=== PATIENT | female | born 1935 | race Caucasian/White ===

== ENCOUNTER 2017-07-17 09:17 | Emergency (ER) | payer MEDICARE, MEDICAID ==
[~2017-07-17] VITALS: Ht 147.3 cm; Wt 45.4 kg
[2017-07-17] MEDS ORDERED: CELE100C PO (09:46)
[2017-07-17] MEDS ORDERED: CLOP75TA15 PO (09:46)
[2017-07-17] MEDS ORDERED: ATOR10TA PO (09:46)
[2017-07-17] MEDS ORDERED: GABA-532 PO (09:46)
[2017-07-17] MEDS ORDERED: MIRA50TA PO (09:46)
[2017-07-17] MEDS ORDERED: BENA20TA2 PO (09:46)
[2017-07-17] MEDS ORDERED: TRAZ-144 PO (09:46)
[2017-07-17] MEDS ORDERED: MEMA1CAP4 PO (09:46)
[2017-07-17] MEDS ORDERED: IV NORMAL SALINE 1000 ML BAG IV ONE (10:00)
--- NOTE | 2017-07-17 10:04 | NUR ---
PT IS IN ROOM #2A. DR GLORIA EVALUATED THE PT.
[2017-07-17 10:21] LABS: BASOPHILS % (AUTO) 0.5 % (0.0-2.0); EOSINOPHILS # (AUTO) 0.1 K/uL (0.0-0.7); HEMATOCRIT 40.9 % (31.2-41.9); LYMPHOCYTES # (AUTO) 1.5 K/uL (20.0-40.0); LYMPHOCYTES % (AUTO) 21.3 % (20.5-51.5); MEAN CORPUSCULAR HEMOGLOBIN 30.6 uug (24.7-32.8); MEAN CORPUSCULAR HGB CONC 34 g/dL (32.3-35.6); MEAN CORPUSCULAR VOLUME 89.3 fL (75.5-95.3); MONOCYTES # (AUTO) 0.6 K/uL (2.0-10.0); MONOCYTES % (AUTO) 8.8 % (0.0-11.0); NEUTROPHILS # (AUTO) 4.7 K/uL (1.8-8.9); NEUTROPHILS % (AUTO) 68.4 % (38.5-71.5); PLATELET COUNT (AUTO) 282 K/uL (179-408); RED BLOOD CELL COUNT(AUTO) 4.57 MIL/uL (3.63-4.92); WHITE BLOOD COUNT (AUTO) 6.8 K/uL (3.8-11.8)
[2017-07-17] MEDS ORDERED: ONDANSETRON 4 MG/2 ML VIAL ONE (10:26)
[2017-07-17 10:35] LABS: CARBON DIOXIDE 27 mmol/L (21-32); CHLORIDE 97 mmol/L (98-107); GLUCOSE 102 mg/dL (74-106); POTASSIUM 4.8 mmol/L (3.5-5.1); UREA NITROGEN, BLOOD 16 mg/dL (7-18)
[2017-07-17] MEDS ORDERED: ONDANSETRON 4 MG/2 ML VIAL IV ONE (10:45)
[2017-07-17 10:51] LABS: ALANINE AMINOTRANSFERASE 34 U/L (14-59); ALKALINE PHOSPHATASE 75 U/L (50-136); ASPARTATE AMINOTRANSFERASE 22 U/L (15-37); BILIRUBIN,DIRECT 0.1 mg/dL (0.0-0.2); BILIRUBIN,TOTAL 0.4 mg/dL (0.2-1.0); TOTAL PROTEIN, SERUM 7.1 g/dL (6.4-8.2)
[2017-07-17 11:31] LABS: *BILIRUBIN,URIN NEGATIVE (NEGATIVE); *BLOOD, URINE 1+ (NEGATIVE); *COLOR,URINE YELLOW (YELLOW); *KETONES,URINE TRACE (NEGATIVE); *PROTEIN,URINE NEGATIVE (NEGATIVE); *UROBILINOGEN,URINE 0.2 E.U./dl (NORMAL); LEUKOCYTE ESTERASE ,URINE TRACE (NEGATIVE); NITRITE, URINE NEGATIVE (NEGATIVE); UGLUCOSE NEGATIVE (NEGATIVE)
[2017-07-17] MEDS ORDERED: CLONIDINE HCL 0.1 MG TABLET ONE (11:40)
[2017-07-17 11:42] LABS: *CLARITY,URINE HAZY (CLEAR)
[2017-07-17 11:43] LABS: BACTERIA,URINE NONE SEEN /HPF (NONE SEEN); SQUAMOUS EPITHELIAL CELL,UR FEW /HPF (NONE SEEN); WBC,URINE 0-3 /HPF (0-3)
[2017-07-17 11:44] LABS: MUCUS,URINE FEW /LPF (0-FEW); URINE AMORPHOUS PHOSPHATES FEW /HPF
[2017-07-17] MEDS ORDERED: CLONIDINE HCL 0.1 MG TABLET PO ONE (12:00)
--- NOTE | 2017-07-17 13:55 | NUR ---
PT WAS D/C TO HOME . PT LEFT HOSPITAL AMA. DR GLORIA EXPLAINED ALL RISKS OF LEAVING HOSPITAL AMA TO THE PT AND TO HER DOUGHTER. PT SIGNED AMA FORM AND LEFT HOSPITAL WITH HER DOUGHTER BY CAR. NO S/S OF ACUTE DISTRESS AT THIS TIME.
[2017-07-17 13:58] VITALS: BP 128/88
== END 2017-07-17 13:59 | disposition left against medical advice (07) ==
LOC: ER 09:17
DX: R42 Dizziness and giddiness (principal); I10 Essential (primary) hypertension; Z79.01 Long term (current) use of anticoagulants; Z79.891 Long term (current) use of opiate analgesic; Z79.899 Other long term (current) drug therapy
CPT/HCPCS: 36415; 70030-TC; 70450; 71045; 83605; 84443; 85025; 85730; 87040; 87086; 93005; A4663; J2405; J7030

== ENCOUNTER 2018-12-18 12:27 | Emergency (ER) | payer MEDICARE, MEDICAID ==
[~2018-12-18] VITALS: Ht 152.4 cm; Wt 47.6 kg
[~2018-12-18 12:27] MED LIST: ATOR10TA PO; BENA20TA9 PO; CELE100C PO; CLOP75TA15 PO; GABA-532 PO; MEMA1CAP4 PO; MIRA50TA PO; TRAZ-182 PO
--- NOTE | 2018-12-18 12:33 | NUR ---
Dr Alcantar at the bedside for MSE. Pt's daughter and caregiver translate.
[2018-12-18] MEDS ORDERED: ERGO2000 PO (12:35)
[2018-12-18] MEDS ORDERED: NEBI5TAB8 PO (12:35)
[2018-12-18 13:02] LABS: BASOPHILS % (AUTO) 0.6 % (0.0-2.0); EOSINOPHILS # (AUTO) 0.1 K/uL (0.0-0.7); EOSINOPHILS % (AUTO) 1.5 % (0.0-7.0); HEMATOCRIT 38.3 % (31.2-41.9); HEMOGLOBIN 12.6 g/dL (10.9-14.3); LYMPHOCYTES # (AUTO) 1.4 K/uL (20.0-40.0); MEAN CORPUSCULAR HEMOGLOBIN 29.6 uug (24.7-32.8); MEAN CORPUSCULAR HGB CONC 33 g/dL (32.3-35.6); MEAN CORPUSCULAR VOLUME 90.4 fL (75.5-95.3); MONOCYTES # (AUTO) 1.3 K/uL (2.0-10.0); MONOCYTES % (AUTO) 14.9 % (0.0-11.0); NEUTROPHILS # (AUTO) 5.6 K/uL (1.8-8.9); PLATELET COUNT (AUTO) 278 K/uL (179-408); RED BLOOD CELL COUNT(AUTO) 4.24 MIL/uL (3.63-4.92); WHITE BLOOD COUNT (AUTO) 8.5 K/uL (3.8-11.8)
[2018-12-18 13:10] LABS: CREATININE 0.8 mg/dL (0.6-1.3); POTASSIUM 4.6 mmol/L (3.5-5.1)
[2018-12-18 13:16] LABS: BILIRUBIN,DIRECT 0.1 mg/dL (0.0-0.2); BILIRUBIN,TOTAL 0.1 mg/dL (0.2-1.0)
[2018-12-18 13:23] LABS: THYROID STIMULATING HORMONE 0.297 mIU/mL (0.358-3.740)
[2018-12-18 13:43] LABS: MAGNESIUM 2.4 mg/dL (1.8-2.4)
[2018-12-18 13:44] LABS: *BILIRUBIN,URIN NEGATIVE (NEGATIVE); *BLOOD, URINE NEGATIVE (NEGATIVE); *CLARITY,URINE CLOUDY (CLEAR); *COLOR,URINE YELLOW (YELLOW); *KETONES,URINE NEGATIVE (NEGATIVE); *UROBILINOGEN,URINE 0.2 E.U./dl (NORMAL); LEUKOCYTE ESTERASE ,URINE 1+ (NEGATIVE); NITRITE, URINE POSITIVE (NEGATIVE); PH,URINE 5.5 (5.0-8.0); UGLUCOSE NEGATIVE (NEGATIVE)
--- NOTE | 2018-12-18 14:00 | NUR ---
pt daughter is requesting to take the pt home.
--- NOTE | 2018-12-18 14:10 | NUR ---
CALLED DR. YANG AT [phone] AT PT DAUGHTER'S REQUEST.
[2018-12-18 14:21] LABS: BACTERIA,URINE MANY /HPF (NONE SEEN); RBC,URINE 0-3 /HPF (0-3); SQUAMOUS EPITHELIAL CELL,UR FEW /HPF (NONE SEEN); WBC,URINE TNTC /HPF (0-3)
[2018-12-18] MEDS: CEFTRIAXONE 1 G VIAL IM ONE (14:23)
[2018-12-18] MEDS: LEVOFLOXACIN 500 MG TABLET PO ONE (14:29)
[2018-12-18] MEDS ORDERED: LEVOFLOXACIN 500 MG TABLET ONE (14:30)
--- NOTE | 2018-12-18 14:40 | NUR ---
Patient discharged to home in stable conditon. Written and verbal after care instructions given. Patient daughter verbalizes understanding of instructions.pt was wheel chaired out assissted by daughter. Addendum: 12/18/18 at 1448 by MADONNA the copy of all the studies provided for follow up
[2018-12-18 14:47] VITALS: BP 131/69
== END 2018-12-18 14:48 | disposition home or self-care (01) ==
LOC: ER 12:27
DX: R53.1 Weakness (principal); N39.0 Urinary tract infection, site not specified; E87.1 Hypo-osmolality and hyponatremia; E87.8 Other disorders of electrolyte and fluid balance, not elsewhere classified; R05 Cough; R13.10 Dysphagia, unspecified; M79.10 Myalgia, unspecified site; E78.5 Hyperlipidemia, unspecified; I10 Essential (primary) hypertension; Z79.899 Other long term (current) drug therapy
CPT/HCPCS: 36415; 70030-TC; 70450; 71045; 83735; 84100; 84443; 85025; 87077; 87086; 93005; A4663; C1758

== ENCOUNTER 2020-06-10 10:23 | Emergency (ER) | payer MEDICARE, OTHER ==
[~2020-06-10] VITALS: Ht 142.2 cm; Wt 49.9 kg
[~2020-06-10 10:23] MED LIST changes: +ERGO2000 PO; -MEMA1CAP4 PO; +NEBI5TAB8 PO
[2020-06-10] MEDS ORDERED: GARLIC EXTRACT (10:47)
[2020-06-10] MEDS ORDERED: GABA-532 PO (10:47)
[2020-06-10] MEDS ORDERED: MAGNESIUM (10:47)
[2020-06-10] MEDS ORDERED: MULT-594 PO (10:47)
[2020-06-10] MEDS ORDERED: OLME40TA12 PO (10:47)
[2020-06-10] MEDS ORDERED: CITA10TA9 PO (10:47)
[2020-06-10 11:18] LABS: BASOPHILS # (AUTO) 0.1 K/uL (0.0-8.0); BASOPHILS % (AUTO) 0.7 % (0.0-2.0); EOSINOPHILS # (AUTO) 0.1 K/uL (0.0-0.7); EOSINOPHILS % (AUTO) 1.5 % (0.0-7.0); HEMATOCRIT 32.8 % (31.2-41.9); HEMOGLOBIN 11.2 g/dL (10.9-14.3); LYMPHOCYTES # (AUTO) 1.4 K/uL (20.0-40.0); LYMPHOCYTES % (AUTO) 15.8 % (20.5-51.5); MEAN CORPUSCULAR HEMOGLOBIN 31.3 uug (24.7-32.8); MEAN CORPUSCULAR HGB CONC 34 g/dL (32.3-35.6); MEAN CORPUSCULAR VOLUME 91.5 fL (75.5-95.3); MONOCYTES # (AUTO) 0.8 K/uL (2.0-10.0); MONOCYTES % (AUTO) 9.8 % (0.0-11.0); NEUTROPHILS # (AUTO) 6.2 K/uL (1.8-8.9); NEUTROPHILS % (AUTO) 72.2 % (38.5-71.5); PLATELET COUNT (AUTO) 284 K/uL (179-408); RED BLOOD CELL COUNT(AUTO) 3.58 MIL/uL (3.63-4.92); WHITE BLOOD COUNT (AUTO) 8.6 K/uL (3.8-11.8)
[2020-06-10] MEDS: IV NORMAL SALINE 500 ML BAG IV ONE ×2 (11:18→12:08)
[2020-06-10 11:30] LABS: CARBON DIOXIDE 24 mmol/L (21-32); CHLORIDE 92 mmol/L (98-107); CREATININE 0.8 mg/dL (0.6-1.3); GLUCOSE 98 mg/dL (74-106); POTASSIUM 5.1 mmol/L (3.5-5.1); UREA NITROGEN, BLOOD 16 mg/dL (7-18)
[2020-06-10 11:35] LABS: ALANINE AMINOTRANSFERASE 24 U/L (14-59); ALKALINE PHOSPHATASE 147 U/L (50-136); ASPARTATE AMINOTRANSFERASE 19 U/L (15-37); BILIRUBIN,DIRECT < 0.1 mg/dL (0.0-0.2); BILIRUBIN,TOTAL 0.2 mg/dL (0.2-1.0); TOTAL PROTEIN, SERUM 7.2 g/dL (6.4-8.2)
[2020-06-10 11:43] LABS: THYROID STIMULATING HORMONE 0.221 mIU/mL (0.358-3.740)
[2020-06-10 11:49] LABS: MAGNESIUM 2.8 mg/dL (1.8-2.4)
--- NOTE | 2020-06-10 12:30 | NUR ---
pt in room daughter at bedside the whole er stay. pt resting comfortably, no sign of distrees when laying down, tender on the hips when moving.
[2020-06-10 12:38] LABS: *BILIRUBIN,URIN NEGATIVE (NEGATIVE); *BLOOD, URINE NEGATIVE (NEGATIVE); *CLARITY,URINE CLEAR (CLEAR); *COLOR,URINE YELLOW (YELLOW); *KETONES,URINE NEGATIVE (NEGATIVE); *UROBILINOGEN,URINE 0.2 E.U./dl (NORMAL); LEUKOCYTE ESTERASE ,URINE NEGATIVE (NEGATIVE); NITRITE, URINE NEGATIVE (NEGATIVE); UGLUCOSE NEGATIVE (NEGATIVE)
[2020-06-10] MEDS ORDERED: FURO-152 PO (12:53)
--- NOTE | 2020-06-10 12:56 | NUR ---
Patient and pt's daughter do not wish to proceed with medical care recommended by Dr. Patel womack ). Patient and pt's daughter given information related to possible complications, up to and including , which could occur as a result of leaving the hospital at this time. Patient and daughter verbalize understanding of risks involved due to leaving against medical advice. Patient has signed AMA form. Addendum: 06/10/20 at 1311 by MADONNA pt's daughter talking to pt own pmd regarding managing the care of the pt at home.
[2020-06-10 13:07] VITALS: BP 168/77
== END 2020-06-10 13:12 | disposition home or self-care (01) ==
LOC: ER 10:23
DX: R53.1 Weakness (principal); Z20.822 Contact with and (suspected) exposure to COVID-19; E22.2 Syndrome of inappropriate secretion of antidiuretic hormone; G91.2 (Idiopathic) normal pressure hydrocephalus; J81.0 Acute pulmonary edema; E05.90 Thyrotoxicosis, unspecified without thyrotoxic crisis or storm; Z79.899 Other long term (current) drug therapy; Z79.02 Long term (current) use of antithrombotics/antiplatelets; E78.5 Hyperlipidemia, unspecified; I10 Essential (primary) hypertension; M25.552 Pain in left hip; M25.551 Pain in right hip; I45.10 Unspecified right bundle-branch block
CPT/HCPCS: 36415; 70030-TC; 70450; 71045; 72170; 83735; 84100; 84443; 85025; 85730; 93005; A4663; C1758

== ENCOUNTER 2020-09-06 15:30 | Emergency (ER) | payer MEDICARE, OTHER ==
[~2020-09-06] VITALS: Ht 152.4 cm; Wt 54.0 kg
[~2020-09-06 15:30] MED LIST changes: -BENA20TA9 PO; +CITA10TA9 PO; +FURO-152 PO; +GARLIC EXTRACT; +MAGNESIUM; +MULT-594 PO; +OLME40TA12 PO
--- NOTE | 2020-09-06 15:30 | NUR ---
at bedside for assessment
--- NOTE | 2020-09-06 15:39 | NUR ---
Patient brought in by RA 78 for syncopal episode
--- NOTE | 2020-09-06 15:50 | NUR ---
Patient taken to radiology at this time
[2020-09-06 16:01] LABS: HEMATOCRIT 34.3 % (31.2-41.9); MEAN CORPUSCULAR HEMOGLOBIN 30.4 uug (24.7-32.8); PLATELET COUNT (AUTO) 280 K/uL (179-408)
[2020-09-06 16:05] LABS: CARBON DIOXIDE 26 mmol/L (21-32); CHLORIDE 100 mmol/L (98-107); CREATININE 0.9 mg/dL (0.6-1.3); GLUCOSE 159 mg/dL (74-106); POTASSIUM 3.9 mmol/L (3.5-5.1); UREA NITROGEN, BLOOD 17 mg/dL (7-18)
[2020-09-06 16:11] LABS: ALANINE AMINOTRANSFERASE 31 U/L (14-59); ALKALINE PHOSPHATASE 102 U/L (50-136); ASPARTATE AMINOTRANSFERASE 16 U/L (15-37); BILIRUBIN,DIRECT 0.1 mg/dL (0.0-0.2); BILIRUBIN,TOTAL 0.1 mg/dL (0.2-1.0); TOTAL PROTEIN, SERUM 6.5 g/dL (6.4-8.2)
[2020-09-06] MEDS ORDERED: IBUPROFEN 600 MG TABLET ONE (16:38)
[2020-09-06] MEDS ORDERED: IBUPROFEN 600 MG TABLET PO ONE (16:45)
--- NOTE | 2020-09-06 16:45 | NUR ---
Patient does not wish to proceed with medical care recommended by Dr. Allen. Patient given information related to possible complications, up to and including , which could occur as a result of leaving the hospital at this time. Patient verbalizes understanding of risks involved due to leaving against medical advice. Patient has signed AMA form.
[2020-09-06 17:01] VITALS: BP 153/64
== END 2020-09-06 16:50 | disposition left against medical advice (07) ==
LOC: ER 15:32
DX: R55 Syncope and collapse (principal); I11.0 Hypertensive heart disease with heart failure; I50.9 Heart failure, unspecified; G30.9 Alzheimer's disease, unspecified; F02.80 Dementia in other diseases classified elsewhere, unspecified severity, without behavioral disturbance, psychotic disturbance, mood disturbance, and anxiety; E78.5 Hyperlipidemia, unspecified; Z86.73 Personal history of transient ischemic attack (TIA), and cerebral infarction without residual deficits; Z66 Do not resuscitate; Z79.02 Long term (current) use of antithrombotics/antiplatelets; I67.2 Cerebral atherosclerosis; E03.9 Hypothyroidism, unspecified; I45.10 Unspecified right bundle-branch block; Z79.899 Other long term (current) drug therapy; G62.9 Polyneuropathy, unspecified
CPT/HCPCS: 36415; 70030-TC; 70450; 71045; 84443; 85025; 85730; 93005; A4663

== ENCOUNTER 2023-01-16 11:21 | Inpatient (IN) | payer MEDICARE, OTHER ==
[~2023-01-16] VITALS: Ht 142.2 cm; Wt 50.3 kg
[2023-01-16] MEDS ORDERED: LIPA1CAP15 PO (12:05)
[2023-01-16] MEDS ORDERED: ACET-73 PO (12:05)
[2023-01-16] MEDS ORDERED: LOSA25TA27 PO (12:05)
[2023-01-16] MEDS ORDERED: ERGO500040 PO (12:05)
[2023-01-16] MEDS ORDERED: FURO20TA4 PO (12:05)
[2023-01-16] MEDS ORDERED: CLOP75TA33 PO (12:05)
[2023-01-16] MEDS ORDERED: CYAN100020 SL (12:05)
[2023-01-16] MEDS ORDERED: TAMS-3 PO (12:05)
[2023-01-16] MEDS ORDERED: TRAZ-182 PO (12:05)
[2023-01-16] MEDS ORDERED: NEBI5TAB8 PO (12:05)
[2023-01-16] MEDS ORDERED: GABA-532 PO (12:05)
[2023-01-16] MEDS ORDERED: OLME40TA12 PO (12:05)
[2023-01-16 12:09] LABS: BASOPHILS % (AUTO) 0.6 % (0.0-2.0); DIFFERENTIAL COMMENT 1; EOSINOPHILS # (AUTO) 0.1 K/uL (0.0-0.7); EOSINOPHILS % (AUTO) 1.5 % (0.0-7.0); HEMATOCRIT 40.4 % (31.2-41.9); HEMOGLOBIN 13.5 g/dL (10.9-14.3); LYMPHOCYTES # (AUTO) 1.8 K/uL (0.8-4.8); LYMPHOCYTES % (AUTO) 20.5 % (20.5-51.5); MEAN CORPUSCULAR HEMOGLOBIN 29.5 uug (24.7-32.8); MEAN CORPUSCULAR HGB CONC 33 g/dL (32.3-35.6); MEAN CORPUSCULAR VOLUME 88.4 fL (75.5-95.3); MONOCYTES # (AUTO) 0.7 K/uL (0.1-1.30); MONOCYTES % (AUTO) 8.2 % (0.0-11.0); NEUTROPHILS # (AUTO) 6.1 K/uL (1.8-8.9); NEUTROPHILS % (AUTO) 69.2 % (38.5-71.5); PLATELET COUNT (AUTO) 344 K/uL (179-408); RED BLOOD CELL COUNT(AUTO) 4.58 MIL/uL (3.63-4.92); WHITE BLOOD COUNT (AUTO) 8.8 K/uL (3.8-11.8)
[2023-01-16 12:22] LABS: CALCIUM 8.6 mg/dL (8.5-10.1); CARBON DIOXIDE 25 mmol/L (21-32); CHLORIDE 92 mmol/L (98-107); CREATININE 0.8 mg/dL (0.6-1.3); ETHANOL < 3 MG/DL (0-10); GLUCOSE 101 mg/dL (74-106); POTASSIUM 4.4 mmol/L (3.5-5.1); SODIUM SERUM 127 mmol/L (136-145); UREA NITROGEN, BLOOD 16 mg/dL (7-18)
[2023-01-16 12:30] LABS: ALANINE AMINOTRANSFERASE 19 U/L (14-59); ALBUMIN 3.8 g/dL (3.4-5.0); ALKALINE PHOSPHATASE 120 U/L (50-136); ASPARTATE AMINOTRANSFERASE 19 U/L (15-37); BILIRUBIN,DIRECT 0.1 mg/dL (0.0-0.2); BILIRUBIN,TOTAL 0.2 mg/dL (0.2-1.0); TOTAL PROTEIN, SERUM 7.4 g/dL (6.4-8.2)
[2023-01-16 12:34] LABS: THYROID STIMULATING HORMONE 0.526 mIU/mL (0.358-3.740)
[2023-01-16 12:37] LABS: *BILIRUBIN,URIN NEGATIVE (NEGATIVE); *BLOOD, URINE NEGATIVE (NEGATIVE); *CLARITY,URINE CLEAR (CLEAR); *COLOR,URINE YELLOW (YELLOW); *KETONES,URINE NEGATIVE (NEGATIVE); *PROTEIN,URINE TRACE (NEGATIVE); *UROBILINOGEN,URINE 0.2 E.U./dl (NORMAL); LEUKOCYTE ESTERASE ,URINE NEGATIVE (NEGATIVE); NITRITE, URINE NEGATIVE (NEGATIVE); PH,URINE 8.5 (5.0-8.0); UGLUCOSE NEGATIVE (NEGATIVE)
[2023-01-16 12:42] LABS: ACETAMINOPHEN < 10.0 ug/mL (10-30)
[2023-01-16 12:46] LABS: AMMONIA < 10 umol/L (11-32)
[2023-01-16 12:53] LABS: RBC,URINE NONE SEEN /HPF (0-3); WBC,URINE 0-3 /HPF (0-3)
[2023-01-16 12:54] LABS: BACTERIA,URINE NONE SEEN /HPF (NONE SEEN); SQUAMOUS EPITHELIAL CELL,UR FEW /HPF (NONE SEEN)
[2023-01-16] MEDS ORDERED: hydrALAZINE HCL 20 MG/1 ML VIAL ONE (13:53)
[2023-01-16] MEDS ORDERED: hydrALAZINE HCL 20 MG/1 ML VIAL IV ONE (14:00)
[2023-01-16] MEDS ORDERED: ACETAMINOPHEN ES 500 MG TABLET ONE (14:28)
[2023-01-16] MEDS ORDERED: ONDANSETRON 4 MG/2 ML VIAL ONE (14:28)
[2023-01-16] MEDS ORDERED: ACETAMINOPHEN 325 MG TABLET PO ONE (14:30)
[2023-01-16] MEDS ORDERED: ONDANSETRON 4 MG/2 ML VIAL IV ONE (14:30)
[2023-01-16] MEDS ORDERED: IV NORMAL SALINE 500 ML BAG IV ONE (15:30)
[2023-01-16 18:51] VITALS: BP 129/62; TEMP 98.4; O2SAT 95
[2023-01-16 20:20] VITALS: BP 126/50; TEMP 98.3; O2SAT 95
[2023-01-16] MEDS ORDERED: hydrALAZINE HCL 20 MG/1 ML VIAL IV PRN (23:15)
[2023-01-17] VITALS: BP 119/74; TEMP 98; O2SAT 95
[2023-01-17] MEDS ORDERED: ENOXAPARIN SODIUM 60 MG/0.6 ML DISP.SYRIN SQ ONE (01:45)
[2023-01-17 02:00] VITALS: BP_SYST 109; BP_SYST 89; BP_DIAS 56; BP_DIAS 66; TEMP 98.3; O2SAT 96
[2023-01-17 04:00] VITALS: BP 129/74; TEMP 97; O2SAT 96
[2023-01-17 04:20] VITALS: BP 140/56; TEMP 97.8; O2SAT 98
[2023-01-17 06:49] LABS: BASOPHILS % (AUTO) 0.4 % (0.0-2.0); EOSINOPHILS # (AUTO) 0.2 K/uL (0.0-0.7); EOSINOPHILS % (AUTO) 2.2 % (0.0-7.0); HEMATOCRIT 37.2 % (31.2-41.9); HEMOGLOBIN 12.6 g/dL (10.9-14.3); LYMPHOCYTES # (AUTO) 1.8 K/uL (0.8-4.8); LYMPHOCYTES % (AUTO) 21.7 % (20.5-51.5); MEAN CORPUSCULAR HEMOGLOBIN 29.8 uug (24.7-32.8); MEAN CORPUSCULAR HGB CONC 34 g/dL (32.3-35.6); MEAN CORPUSCULAR VOLUME 87.8 fL (75.5-95.3); MONOCYTES # (AUTO) 0.7 K/uL (0.1-1.30); MONOCYTES % (AUTO) 8.7 % (0.0-11.0); NEUTROPHILS # (AUTO) 5.5 K/uL (1.8-8.9); PLATELET COUNT (AUTO) 320 K/uL (179-408); RED BLOOD CELL COUNT(AUTO) 4.24 MIL/uL (3.63-4.92); RED CELL DISTRIBUTION WIDTH 14.3 % (12.3-17.7); WHITE BLOOD COUNT (AUTO) 8.2 K/uL (3.8-11.8)
[2023-01-17 07:00] LABS: DIFFERENTIAL COMMENT 1
[2023-01-17] MEDS ORDERED: BLOOD SUGAR DIAGNOSTIC 1 EACH STRIP VI SCH ×2 (07:00→07:30)
[2023-01-17 07:11] LABS: CALCIUM 8.1 mg/dL (8.5-10.1); CREATININE 0.9 mg/dL (0.6-1.3); POTASSIUM 4.4 mmol/L (3.5-5.1)
[2023-01-17] MEDS ORDERED: ASPIRIN EC 81 MG TABLET.DR PO SCH (09:00)
[2023-01-17] MEDS ORDERED: CLOPIDOGREL 75 MG TABLET PO SCH (10:00)
[2023-01-17] MEDS ORDERED: LOSARTAN POTASSIUM 50 MG TABLET PO SCH (10:30)
[2023-01-17 11:48] VITALS: BP 123/56; TEMP 97.8; O2SAT 98
[2023-01-17] MEDS ORDERED: ENOXAPARIN SODIUM 30 MG/0.3 ML DISP.SYRIN SUBCUT SCH (14:00)
[2023-01-17 15:00] VITALS: O2SAT 98
== END 2023-01-17 15:05 | disposition home health service (06) | DRG 280 ==
LOC: ER 11:24 → TELE3 18:14
PROVIDERS: ADMIT Nurse Practitioner Acute Care; ATTEND Nurse Practitioner Acute Care
DX: I16.9 Hypertensive crisis, unspecified (principal); I21.A1 Myocardial infarction type 2; G93.41 Metabolic encephalopathy; E87.1 Hypo-osmolality and hyponatremia; G91.2 (Idiopathic) normal pressure hydrocephalus; J98.11 Atelectasis; I50.32 Chronic diastolic (congestive) heart failure; I11.0 Hypertensive heart disease with heart failure; G30.9 Alzheimer's disease, unspecified; F02.A0 Dementia in other diseases classified elsewhere, mild, without behavioral disturbance, psychotic disturbance, mood disturbance, and anxiety; Z79.899 Other long term (current) drug therapy; Z79.02 Long term (current) use of antithrombotics/antiplatelets; M84.48XD Pathological fracture, other site, subsequent encounter for fracture with routine healing; Z86.73 Personal history of transient ischemic attack (TIA), and cerebral infarction without residual deficits; E78.5 Hyperlipidemia, unspecified; E03.9 Hypothyroidism, unspecified; R32 Unspecified urinary incontinence
CPT/HCPCS: 36415; 70450; 71045; 83605; 84443; 84484; 85025; 85730; 87040; 93005; 93307; A4606; A4663; A9150; C1758; G0378; G0480; J0360; J1650; J2405